=== PATIENT | male | born 1990 | race African-American/Black ===

== ENCOUNTER 2018-12-29 04:02 | Emergency (ER) | payer SELFPAY ==
[~2018-12-29] VITALS: Ht 177.8 cm; Wt 91.0 kg
[2018-12-29] MEDS ORDERED: SODIUM CHLORIDE 0.9% 1,000 ML IV ONE (07:15)
[2018-12-29] MEDS ORDERED: DIPHENHYDRAMINE 50MG/ML VIAL IV ONE (07:15)
[2018-12-29] MEDS ORDERED: KETOROLAC 30MG/ML VIAL IV ONE (07:15)
[2018-12-29 09:40] VITALS: BP 138/83
== END 2018-12-29 10:32 | disposition home or self-care (01) ==
LOC: ER 04:02
DX: G44.209 Tension-type headache, unspecified, not intractable (principal); F12.10 Cannabis abuse, uncomplicated
CPT/HCPCS: 96374; 96375; 99283; J1200; J1885; J7030; Z7610